=== PATIENT | male | born 1990 | race Caucasian/White ===

== ENCOUNTER 2017-01-09 11:41 | Emergency (ER) | payer OTHER ==
--- NOTE | 2017-01-09 12:14 | ED NURSING NOTES ---
Clinical Report - Nurses [facility] [address] [place] [address] 01/09/2017 11:44 Patient: LISSETH MOORE TRIAGE Triage time 12:00. Acuity: LEVEL 4. Chief Complaint: SKIN PROBLEM. 12:07 01/09/17. Alert. No acute distress. SEPSIS SCREEN: Sepsis Screen. Negative (no infection suspected/documented). Temperature not greater than 38.3 degrees C (101 degrees F). Heart rate not greater than 90. Respiratory rate not greater than 20. --12:07 Adri Goodwin R.N. 12:02 01/09/17. BP: 138/85. HR: 85. RR: 16. O2 saturation: 96% on room air. Temp: 98.4 F (oral). Pain level now 0/10. --12:07 Adri Goodwin R.N. Weight: 88.4 kg stated. Height/Length: 73 inches Per Patient. BMI: 25.7. --12:02 Adri Goodwin R.N. Medications None. --12:05 Adri Goodwin R.N. Allergies No Known Drug Allergy. --12:05 Adri Goodwin R.N. Medication/allergy information source: the patient. --12:07 Adri Goodwin R.N. History Arrived by private vehicle. Primary physician (no pcp). ( rash to abd/torso x 2 weeks. states he used a new body wash 2 weeks ago and that's when it started. Has switched back to his usual body wash but rash is still present.). Reported as located on the abdomen. Onset. (2 weeks ago). No recent medication, food exposure or insect bite. 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 SOCIAL HX: Heavy tobacco smoker (cigarette)- 1 pack per day. No alcohol use or drug use. FALL RISK ASSESSMENT: Fall risk assessment completed. No fall risk identified. NUTRITIONAL RISK ASSESSMENT: The nutritional risk assessment revealed no deficiencies. FUNCTIONAL ASSESSMENT: Functional assessment: no impairments noted. LEARNING NEEDS ASSESSMENT: The learning needs assessment revealed no barriers. SKIN INTEGRITY ASSESSMENT: Skin integrity risk assessment completed. No skin integrity risk identified. --12:07 Adri Goodwin R.N. PROBLEMS: PTSD. Migraine Headache. --12:07 Adri Goodwin R.N. ADDITIONAL SURGERIES: no known surgeries. Interventions ID band on patient. To treatment room. --12:07 Adri Goodwin R.N. PHYSICAL ASSESSMENT Ambulatory to room. GENERAL / NEURO / PSYCH: Alert. The patient does not appear to be in acute distress. Oriented X 4. HEENT: Mucous membranes are pink. RESPIRATORY: Respirations not labored. CVS: Capillary refill less than 2 seconds. GI / : Abdomen nontender. SKIN: Skin is intact, warm and dry. Skin rash present- healing. --12:08 Adri Goodwin R.N. NURSING PROGRESS NOTES 12:08 01/09/17. The plan of care for this patient has been created. Patient gowned. Head of bed elevated. Call light placed in reach. Bed placed in lowest position. Brakes of bed on. Patient ready for evaluation- chart flagged. --12:08 Adri Goodwin R.N. DISPOSITION / DISCHARGE 12:26 01/09/17. Condition at departure: unchanged. No learning barriers present. Discharge instructions provided and reviewed with the patient. Reviewed medication(s) side effects, precautions, dosing and course information. Prescription(s) given to the patient. Patient verbalized understanding. Written instructions provided in Tu[place]. The patient was discharged home and accompanied by spouse. He left the Emergency Department ambulatory and via private vehicle. Spouse driving. Medication list reviewed and validated. --12:26 Shawanda Neri R.N. 12:02 01/09/17. BP: 138/85. HR: 85. RR: 16. O2 saturation: 96% on room air. Temp: 98.4 F (oral). Pain level now 0/10. --12:26 Shawanda Neri R.N. Locked/Released at 01/09/2017 12:27 by Shawanda Neri R.N.
--- NOTE | 2017-01-09 12:14 | ED CLINICAL REPORT ---
Clinical Report - Physicians/Mid Levels [facility] [address] [place] [address] 01/09/2017 11:44 Patient: LISSETH MOORE Time Seen: 12:03 Jan 09 2017. Arrived- By private vehicle. Historian- patient. 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 This started 2 weeks DIRECTOR CHECK and is still present. It is described as itchy and burning. It has been located on the trunk. A possible cause has been identified. (Patient reports over the last 2 weeks has had a rash to his torso, pruritic in nature, he did start a new body wash 2 weeks previously, however has discontinued use of such, after only 1 day of use. Denies any pain. Denies any fevers or chills. Denies history of similar rash.). REVIEW OF SYSTEMS No fever, chills, cough, difficulty breathing or abdominal pain. No diarrhea. All systems otherwise negative, except as recorded above. PAST HISTORY Tetanus immunization status is up-to-date. Problems: PTSD. Migraine Headache. Additional Surgeries: no known surgeries. Medications: None. Allergies: No Known Drug Allergy. SOCIAL HISTORY Heavy tobacco smoker- 1 pack per day. No alcohol use or drug use. ADDITIONAL NOTES The nursing notes have been reviewed. PHYSICAL EXAM Vital Signs: 01/09/2017 12:02 BP: 138/85. HR: 85. RR: 16. O2 saturation: 96%. Temp: 98.4 F. Appearance: Alert. ENT: Ears normal. Nose normal. Neck: Neck supple. No lymphadenopathy. CVS: Normal heart rate and rhythm. Heart sounds normal. Abdomen: Nontender. No abdominal tenderness. Skin: Skin warm. No erythema. No tender indurated area. No cellulitis. Rash present on the right and left abdomen. The rash is maculopapular. No abscess. Neuro: Oriented X 3. PROGRESS AND PROCEDURES Course of Care: Noninfectious appearing rash, with no signs of cellulitis. No signs of interdigit rash. No re Possible irritation reaction. We'll treat for such. Patient urged follow-up with no improvement in 7-10 days. Patient is stable. Differential Diagnosis: I considered contact dermatitis, atopic dermatitis, seborrheic dermatitis, nummular dermatitis, chronic eczema, general exfoliative dermatitis, bacterial infection, cellulitis, lymphangitis, folliculitis, necrotizing subcutaneous infection, fungal infection, viral etiology, parasitic infection, type 1 hypersensitivity, idiopathic urticaria, meningococcemia, viral exanthem and fifth disease as a possible cause of rash in this patient. This is a partial list of diagnoses considered. CLINICAL IMPRESSION Mild irritative contact dermatitis. INSTRUCTIONS (with PCP/ [facility] Address: [facility] [place] [phone] ). Prescription Medications: Hydrocortisone 1% cream: apply to affected areas three times daily for 1 week, as needed for itching, until symptoms improve. Dispense sixty (60) grams. No refills. Substitution is permissible. OTC Medications: Take Benadryl according to label instructions. Available over the counter. Follow-up: Follow up with your doctor in seven days. Understanding of the discharge instructions verbalized by patient. (Electronically signed by Jane Corey P.A.-C 01/09/2017 12:24)
--- NOTE | 2017-01-09 12:14 | ED CLINICAL REPORT ---
Clinical Report - Physicians/Mid Levels [facility] [address] [place] [address] 01/09/2017 11:44 Patient: LISSETH MOORE Time Seen: 12:03 Jan 09 2017. Arrived- By private vehicle. Historian- patient. 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 It is described as itchy and burning. It has been located on the trunk. A possible cause has been identified. (Patient reports over the last 2 weeks has had a rash to his torso, pruritic in nature, he did start a new body wash 2 weeks previously, however has discontinued use of such, after only 1 day of use. Denies any pain. Denies any fevers or chills. Denies history of similar rash.). REVIEW OF SYSTEMS No fever, chills, cough, difficulty breathing or abdominal pain. No diarrhea. All systems otherwise negative, except as recorded above. PAST HISTORY Tetanus immunization status is up-to-date. Problems: PTSD. Migraine Headache. Additional Surgeries: no known surgeries. Medications: None. Allergies: No Known Drug Allergy. SOCIAL HISTORY Heavy tobacco smoker- 1 pack per day. No alcohol use or drug use. ADDITIONAL NOTES The nursing notes have been reviewed. PHYSICAL EXAM Vital Signs: 01/09/2017 12:02 BP: 138/85. HR: 85. RR: 16. O2 saturation: 96%. Temp: 98.4 F. Appearance: Alert. ENT: Ears normal. Nose normal. Neck: Neck supple. No lymphadenopathy. CVS: Normal heart rate and rhythm. Heart sounds normal. Abdomen: Nontender. No abdominal tenderness. Skin: Skin warm. No erythema. No tender indurated area. No cellulitis. Rash present on the right and left abdomen. The rash is maculopapular. No abscess. Neuro: Oriented X 3. PROGRESS AND PROCEDURES Course of Care: Noninfectious appearing rash, with no signs of cellulitis. No signs of interdigit rash. No re Possible irritation reaction. We'll treat for such. Patient urged follow-up with no improvement in 7-10 days. Patient is stable. Differential Diagnosis: I considered contact dermatitis, atopic dermatitis, seborrheic dermatitis, nummular dermatitis, chronic eczema, general exfoliative dermatitis, bacterial infection, cellulitis, lymphangitis, folliculitis, necrotizing subcutaneous infection, fungal infection, viral etiology, parasitic infection, type 1 hypersensitivity, idiopathic urticaria, meningococcemia, viral exanthem and fifth disease as a possible cause of rash in this patient. This is a partial list of diagnoses considered. CLINICAL IMPRESSION Mild irritative contact dermatitis. INSTRUCTIONS (with PCP/ CHC Address: [facility] [place] [phone] ). Prescription Medications: Hydrocortisone 1% cream: apply to affected areas three times daily for 1 week, as needed for itching, until symptoms improve. Dispense sixty (60) grams. No refills. Substitution is permissible. OTC Medications: Take Benadryl according to label instructions. Available over the counter. Follow-up: Follow up with your doctor in seven days. Understanding of the discharge instructions verbalized by patient. (Electronically signed by Jane Corey P.A.-C 01/09/2017 12:24)
--- NOTE | 2017-01-09 12:14 | ED NURSING NOTES ---
Clinical Report - Nurses [facility] [address] [place] [address] 01/09/2017 11:44 Patient: LISSETH MOORE TRIAGE Triage time 12:00. Acuity: LEVEL 4. Chief Complaint: SKIN PROBLEM. 12:07 01/09/17. Alert. No acute distress. SEPSIS SCREEN: Sepsis Screen. Negative (no infection suspected/documented). Temperature not greater than 38.3 degrees C (101 degrees F). Heart rate not greater than 90. Respiratory rate not greater than 20. --12:07 Adri Goodwin R.N. 12:02 01/09/17. BP: 138/85. HR: 85. RR: 16. O2 saturation: 96% on room air. Temp: 98.4 F (oral). Pain level now 0/10. --12:07 Adri Goodwin R.N. Weight: 88.4 kg stated. Height/Length: 73 inches Per Patient. BMI: 25.7. --12:02 Adri Goodwin R.N. Medications None. --12:05 Adri Goodwin R.N. Allergies No Known Drug Allergy. --12:05 Adir Goodwin R.N. Medication/allergy information source: the patient. --12:07 Adri Goodwin R.N. History Arrived by private vehicle. Primary physician (no pcp). ( rash to abd/torso x 2 weeks. states he used a new body wash 2 weeks ago and that's when it started. Has switched back to his usual body wash but rash is still present.). Reported as located on the abdomen. Onset. (2 weeks ago). No recent medication, food exposure or insect bite. 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 SOCIAL HX: Heavy tobacco smoker (cigarette)- 1 pack per day. No alcohol use or drug use. FALL RISK ASSESSMENT: Fall risk assessment completed. No fall risk identified. NUTRITIONAL RISK ASSESSMENT: The nutritional risk assessment revealed no deficiencies. FUNCTIONAL ASSESSMENT: Functional assessment: no impairments noted. LEARNING NEEDS ASSESSMENT: The learning needs assessment revealed no barriers. SKIN INTEGRITY ASSESSMENT: Skin integrity risk assessment completed. No skin integrity risk identified. --12:07 Adri Goodwin R.N. PROBLEMS: PTSD. Migraine Headache. --12:07 Adri Goodwin R.N. ADDITIONAL SURGERIES: no known surgeries. Interventions ID band on patient. To treatment room. --12:07 Adri Goodwin R.N. PHYSICAL ASSESSMENT Ambulatory to room. GENERAL / NEURO / PSYCH: Alert. The patient does not appear to be in acute distress. Oriented X 4. HEENT: Mucous membranes are pink. RESPIRATORY: Respirations not labored. CVS: Capillary refill less than 2 seconds. GI / : Abdomen nontender. SKIN: Skin is intact, warm and dry. Skin rash present- healing. --12:08 Adri Goodwin R.N. NURSING PROGRESS NOTES 12:08 01/09/17. The plan of care for this patient has been created. Patient gowned. Head of bed elevated. Call light placed in reach. Bed placed in lowest position. Brakes of bed on. Patient ready for evaluation- chart flagged. --12:08 Adri Goodwin R.N. DISPOSITION / DISCHARGE 12:26 01/09/17. Condition at departure: unchanged. No learning barriers present. Discharge instructions provided and reviewed with the patient. Reviewed medication(s) side effects, precautions, dosing and course information. Prescription(s) given to the patient. Patient verbalized understanding. Written instructions provided in Japanese. The patient was discharged home and accompanied by spouse. He left the Emergency Department ambulatory and via private vehicle. Spouse driving. Medication list reviewed and validated. --12:26 Shawanda Neri R.N. 12:02 01/09/17. BP: 138/85. HR: 85. RR: 16. O2 saturation: 96% on room air. Temp: 98.4 F (oral). Pain level now 0/10. --12:26 Shawanda Neri R.N. Locked/Released at 01/09/2017 12:27 by Shawanda Neri R.N.
--- NOTE | 2017-01-09 12:27 | ED DISCHARGE INSTRUCTIONS ---
Patient: LISSETH MOORE General Instructions [facility] VisitID: [id number] [place] [address] 26y, M Registration Date/Time: 01/09/2017 Mild irritative contact dermatitis. INSTRUCTIONS (with PCP/ CHC Address: [place] [address] ). Prescription Medications: Hydrocortisone 1% cream: apply to affected areas three times daily for 1 week, as needed for itching, until symptoms improve. Dispense sixty (60) grams. No refills. Substitution is permissible. OTC Medications: Take Benadryl according to label instructions. Available over the counter. Follow-up: Follow up with your doctor in seven days. Understanding of the discharge instructions verbalized by patient. ADDITIONAL INFORMATION Dermatitis (Non-Specific) Dermatitis is an inflammation of the skin. The exact cause of your rash is not certain. However, this rash does not appear to be an infection or contagious illness. Taking care of the rash at home should help relieve your symptoms. Home Care: Keep the areas of rash clean by washing it daily. This also helps to keep the skin moist. Use a neutral pH soap such as Dove or Lever 2000. Apply a moisturizing lotion after bathing to prevent dry skin. Avoid skin irritants (wool or silk clothing, grease, oils, some medicines, harsh soaps, and detergents). Wear absorbent, soft fabrics next to the skin rather than rough or scratchy materials. Unless another medicine was prescribed, you may use Hydrocortisone cream (which you can get without a prescription) to reduce the inflammation. Follow Up: Make an appointment with your doctor in the next 1 to 2 weeks if your symptoms do not improve with the above measures. Get Prompt Medical Attention if any of the following occur: Increasing area of redness or pain in the skin Yellow crusts or drainage from the rash Joint pain New rash that appears in other areas of the body Fever of 100.4F (38C) or higher, or as directed by your healthcare provider You have been given the following additional information: Dermatitis, Non-Specific (Electronically signed by Jane Corey P.A.-C 01/09/2017 12:24)
--- NOTE | 2017-01-09 12:27 | ED MED RECONCILIATION SUMMARY ---
Patient: LISSETH MOORE Medication Reconciliation Report [facility]erg[facility] VisitID: [id number] [place] [address] 26y, M Registration Date/Time: 01/09/2017 Weight: 88.4 kg Height/Length: 73 in. BMI: 25.7 ALLERGIES: No Known Drug Allergy The patient's Home Medications are listed below: NONE. The source(s) of the original Home Medication information: patient The following Medications were given to the patient in the Emergency Department: None. The following Medications were prescribed to the patient: Take Benadryl according to label instructions. Available over the counter. -- Jane Corey, P.A.-C Hydrocortisone 1% cream: apply to affected areas three times daily for 1 week, as needed for itching, until symptoms improve. Dispense sixty (60) grams. No refills. Substitution is permissible. -- Jane Corey, P.A.-C
--- NOTE | 2017-01-09 12:27 | ED MAR SUMMARY ---
..... Medication Administration Record [facility] [address] [place], [place] [id number] Patient: LISSETH MOORE Visit ID: [id number] 26y, M Weight: 88.4 kg Height/Length: 73 in BMI: 25.7 ALLERGIES: No Known Drug Allergy
--- NOTE | 2017-01-09 12:27 | ED DISCHARGE INSTRUCTIONS ---
Patient: LISSETH MOORE General Instructions [facility] VisitID: [id number] [place] [address] 26y, M Registration Date/Time: 01/09/2017 Mild irritative contact dermatitis. INSTRUCTIONS (with PCP/ CHC Address: [place] [address] ). Prescription Medications: Hydrocortisone 1% cream: apply to affected areas three times daily for 1 week, as needed for itching, until symptoms improve. Dispense sixty (60) grams. No refills. Substitution is permissible. OTC Medications: Take Benadryl according to label instructions. Available over the counter. Follow-up: Follow up with your doctor in seven days. Understanding of the discharge instructions verbalized by patient. ADDITIONAL INFORMATION Dermatitis (Non-Specific) Dermatitis is an inflammation of the skin. The exact cause of your rash is not certain. However, this rash does not appear to be an infection or contagious illness. Taking care of the rash at home should help relieve your symptoms. Home Care: Keep the areas of rash clean by washing it daily. This also helps to keep the skin moist. Use a neutral pH soap such as Dove or Lever 2000. Apply a moisturizing lotion after bathing to prevent dry skin. Avoid skin irritants (wool or silk clothing, grease, oils, some medicines, harsh soaps, and detergents). Wear absorbent, soft fabrics next to the skin rather than rough or scratchy materials. Unless another medicine was prescribed, you may use Hydrocortisone cream (which you can get without a prescription) to reduce the inflammation. Follow Up: Make an appointment with your doctor in the next 1 to 2 weeks if your symptoms do not improve with the above measures. Get Prompt Medical Attention if any of the following occur: Increasing area of redness or pain in the skin Yellow crusts or drainage from the rash Joint pain New rash that appears in other areas of the body Fever of 100.4F (38C) or higher, or as directed by your healthcare provider You have been given the following additional information: Dermatitis, Non-Specific (Electronically signed by Jane Corey P.A.-C 01/09/2017 12:24)
--- NOTE | 2017-01-09 12:27 | ED MED RECONCILIATION SUMMARY ---
Patient: LISSETH MOORE Medication Reconciliation Report [facility] VisitID: [id number] [place] [address] 26y, M Registration Date/Time: 01/09/2017 Weight: 88.4 kg Height/Length: 73 in. BMI: 25.7 ALLERGIES: No Known Drug Allergy The patient's Home Medications are listed below: NONE. The source(s) of the original Home Medication information: patient The following Medications were given to the patient in the Emergency Department: None. The following Medications were prescribed to the patient: Take Benadryl according to label instructions. Available over the counter. -- Jane Corey, P.A.-C Hydrocortisone 1% cream: apply to affected areas three times daily for 1 week, as needed for itching, until symptoms improve. Dispense sixty (60) grams. No refills. Substitution is permissible. -- Jane Corey, P.A.-C
--- NOTE | 2017-01-09 12:27 | ED MAR SUMMARY ---
..... Medication Administration Record [facility] [address] [place], [place] [id number] Patient: LISSETH MOORE Visit ID: [id number] 26y, M Weight: 88.4 kg Height/Length: 73 in BMI: 25.7 ALLERGIES: No Known Drug Allergy
== END 2017-01-09 12:24 | disposition home or self-care (01) ==
LOC: ED SRH 11:41
DX: L24.9 Irritant contact dermatitis, unspecified cause (principal)